=== PATIENT | female | born 1965 | race Caucasian/White ===

== ENCOUNTER 2017-12-18 14:41 | Inpatient (IN) | payer OTHER ==
[2017-12-18 16:50] VITALS: BMI 24.6
--- NOTE | 2017-12-18 20:21 | HP ---
CIWA Score - CIWA Score Nausea/Vomitin Muscle Tremors: 4-Moderate,w/Arms Extend Anxiety: 4-Mod. Anxious/Guarded Agitation: 4-Moderately Restless Paroxysmal Sweats: 3 Orientation: 1-Uncertain about Date Tacttile Disturbances: 0-None Auditory Disturbances: 0-None Visual Disturbances: 0-None Headache: 0-None Present CIWA-Ar Total Score: 19 Admission ROS BHS - HPI Chief Complaint: C/O WITHDRWAL SX'S. SEEKING DETOX FOR ALCOHOL DEPENDENCE Allergies/Adverse Reactions: Allergies Allergy/AdvReac Type Severity Reaction Status Date / Time No Known Allergies Allergy Verified 12/18/17 18:48 History of Present Illness: 52 Y.O. FEMALE WITH POLYSUBSTANCE ABUSE HERE FOR ETOH DETOX. SHE IS PRESENTLY ON OTP AT [facility]. LDM METHADONE 80 MG TODAY. THIS IS HER FIRST TIME HERE BUT IS KNOWN TO OTHER INPATIENT DETOX AND REHAB SERVICES. LAST DETOXED 6 MONTHS AGO. REPORTS LONGEST CLEAN TIME 5 YEARS. REFERRED BY HER OTP COUNSELOR. PMHX HIV DX 1998 AND HEP C NOT TX'ED. MENTAL HEALTH DEPRESSION NO MED MGMT.DENIES LEGALS. DENIES WITHDRAWAL SEIZURES, PREVIOUS/PRESENT SI/HI AND/ OR A/V HALLUCINATIONS. Exam Limitations: No Limitations - Ebola screening Have you traveled outside of the country in the last 21 days: No Have you had contact with anyone from an Ebola affected area: No Have you been sick,other than usual withdrawal symptoms: No Do you have a fever: No - Review of Systems Constitutional: Chills, Loss of Appetite, Night Sweats, Changes in sleep, Unintentional Wgt. Loss EENT: reports: Dental Problems (EDNETULOUS) Respiratory: reports: No Symptoms reported Cardiac: reports: No Symptoms Reported GI: reports: Diarrhea, Nausea, Poor Appetite, Poor Fluid Intake : reports: No Symptoms Reported Musculoskeletal: reports: No Symptoms Reported Integumentary: reports: No Symptoms Reported Neuro: reports: No Symptoms reported Endocrine: reports: No Symptoms Reported Hematology: reports: No Symptoms Reported Psychiatric: reports: Depressed Other Systems: Reviewed and Negative Patient History - Patient Medical History Hx Asthma: No Hx Chronic Obstructive Pulmonary Disease (COPD): No Hx Cancer: No Hx Cardiac Disorders: No Hx Congestive Heart Failure: No Hx Hypertension: No Hx Hypercholesterolemia: No Hx Pacemaker: No HX Cerebrovascular Accident: No Hx Seizures: No Hx Diabetes: No Hx Gastrointestinal Disorders: No Hx Liver Disease: No Hx Genitourinary Disorders: No Hx Sexually Transmitted Disorders: No Hx Renal Disease (ESRD): No Hx Thyroid Disease: No Hx Human Immunodeficiency Virus (HIV): Yes (DX 1998/ TIVICAY/DESCOVY/BACTRIM) Hx Hepatitis C: Yes (NO TXMENT ) Hx Depression: Yes Hx Suicide Attempt: No Hx Bipolar Disorder: No Hx Schizophrenia: No Other Medical History: DENIES - Patient Surgical History Past Surgical History: Yes Hx Cholecystectomy: Yes (2004) - PPD History Previous Implant?: Yes Documented Results: Negative w/o proof Implanted On Prior [facility] Admission?: No PPD to be Administered?: Yes - Reproductive History Patient is a Female of Child Bearing Age (11 -55 yrs old): Yes LMP comment: MENAPAUSE Patient : No ([facility]) - Smoking Cessation Smoking history: Current every day smoker Have you smoked in the past 12 months: Yes Aproximately how many cigarettes per day: 20 Cigars Per Day: 0 Hx Chewing Tobacco Use: No Initiated information on smoking cessation: Yes 'Breaking Loose' booklet given: 12/18/17 - Substance & Tx. History Hx Alcohol Use: Yes Hx Substance Use: Yes Substance Use Type: Alcohol, Cocaine, Heroin, Marijuana, Prescribed (METHADONE 80 MG) Hx Substance Use Treatment: Yes ([facility]) - Substances Abused Alcohol Route: Oral Frequency: Daily Amount used: 1 PINT BACARDI, 6 PACKS BEER Age of first use: 18 Date of Last Use: 12/18/17 Cocaine Route: Smoking Frequency: Daily Amount used: 6 BAGS Age of first use: 18 Date of Last Use: 12/17/17 Heroin Route: Smoking Frequency: Daily Amount used: 4 BAGS Age of first use: 18 Date of Last Use: 12/18/17 Family Disease History - Family Disease History Family Disease History: Other: Father (ALCOHOLIC), Sister (BIPOLAR, HEROIN ADDICITION ) Admission Physical Exam BHS - Vital Signs Vital Signs: Vital Signs - 24 hr 12/18/17 16:46 Temperature 97 F L Pulse Rate 79 Respiratory 18 Rate Blood Pressure 123/78 - Physical General Appearance: Yes: Appropriately Dressed, Disheveled, Tremorous, Anxious HEENTM: Yes: EOMI, Normocephalic, Normal Voice, ROSA, Pharynx Normal, Other ( EDENTULOUS) Respiratory: Yes: Chest Non-Tender, Lungs Clear, Normal Breath Sounds, No Respiratory Distress, No Accessory Muscle Use Neck: Yes: No masses,lesions,Nodules, Supple, Trachea in good position Breast: Yes: Breast Exam Deferred Cardiology: Yes: Regular Rhythm, Regular Rate, S1, S2 Abdominal: Yes: Normal Bowel Sounds, Non Tender, Flat, Soft Genitourinary: Yes: Within Normal Limits (NO C/O) Back: Yes: Normal Inspection Musculoskeletal: Yes: full range of Motion, Gait Steady Extremities: Yes: Normal Capillary Refill, Normal Range of Motion, Non-Tender, Tremors Neurological: Yes: Fully Oriented, Alert, Motor Strength 5/5 Integumentary: Yes: Dry, Warm, Track Perez (UPPER EXTREMITIES AND BLE), Other ( NEEDLE PEREZ) Lymphatic: Yes: Within Normal Limits - Diagnostic (1) Alcohol dependence with uncomplicated withdrawal Current Visit: Yes Status: Chronic (2) Cocaine dependence, uncomplicated Current Visit: Yes Status: Chronic (3) Cannabis dependence, uncomplicated Current Visit: Yes Status: Chronic (4) Methadone maintenance therapy patient Current Visit: Yes Status: Chronic (5) HIV (human immunodeficiency virus infection) Current Visit: Yes Status: Chronic (6) Hep C w/o coma, chronic Current Visit: Yes Status: Chronic (7) Depressed mood Current Visit: Yes Status: Suspected (8) Skin turgor poor Current Visit: Yes Status: Acute Cleared for Admission [facility] - Detox or Rehab [facility] Level of Care: Medically Managed Detox Regimen/Protocol: Librium [facility] Breath Alcohol Content Breath Alcohol Content: 0 Urine Pregancy Test - Result Urine Test Results: Negative- NO Line Present Urine Drug Screen - Results Drug Screen Negative: No Urine Drug Screen Results: THC-Marijuana, GOMEZ-Cocaine, OPI-Opiates, MTD- Methadone
[2017-12-18] MEDS ORDERED: chlordiazePOXIDE HCL 25 MG CAPSULE PO PRN (20:29)
[2017-12-18] MEDS ORDERED: P-EPHED 60MG/TRIPROLIDI 2.5MG TABLET PO PRN (20:29)
[2017-12-18] MEDS ORDERED: guaiFENesin/D-METHORPHAN HB 10 ML UNIT-DOSE CUPS PO PRN (20:29)
[2017-12-18] MEDS ORDERED: MAGNESIUM HYDROX 2400MG/30ML ORAL SUSPENSION 30 ML CUP PO PRN (20:29)
[2017-12-18] MEDS ORDERED: MAGNESIUM CITRATE 300 ML BOTTLE PO PRN (20:29)
[2017-12-18] MEDS ORDERED: ACETAMINOPHEN 325 MG TABLET (FP) PO PRN (20:29)
[2017-12-18] MEDS ORDERED: LOPERAMIDE HCL 2 MG CAPSULE PO PRN (20:29)
[2017-12-18] MEDS ORDERED: chlordiazePOXIDE HCL 25 MG CAPSULE PO ONE (20:29)
[2017-12-18] MEDS ORDERED: MAG HYDROX/AL HYDROX/SIMETH 30 ML UNIT-DOSE CUP PO PRN (20:29)
[2017-12-18] MEDS ORDERED: NICOTINE POLACRILEX 2 MG GUM BC PRN (20:29)
[2017-12-18] MEDS ORDERED: IBUPROFEN 400 MG TABLET (FP) PO PRN (20:29)
[2017-12-18] MEDS ORDERED: MENTHOL/PHENOL 1 EACH UD MM PRN (20:29)
[2017-12-18] MEDS: THIAMINE HCL 100 MG TABLET (FP) PO SCH (22:40)
[2017-12-18] MEDS: chlordiazePOXIDE HCL 25 MG CAPSULE PO SCH (22:40)
[2017-12-18 23:36] LABS: URINE APPEARANCE TURBID; URINE BLOOD NEGATIVE (NEGATIVE); URINE COLOR YELLOW; URINE GLUCOSE (UA) NEGATIVE (NEGATIVE); URINE KETONE NEGATIVE (NEGATIVE); URINE LEUK ESTERASE NEGATIVE (NEGATIVE); URINE NITRITE NEGATIVE (NEGATIVE); URINE UROBILINOGEN 4.0 E.U/dl mg/dL (0.2-1.0)
[2017-12-18 23:38] LABS: URINE PROTEIN 1+ (NEGATIVE)
[2017-12-18 23:39] LABS: EPI CELLS RARE /HPF (FEW); URINE BACTERIA RARE /hpf (NONE SEEN); URINE MUCUS RARE
[2017-12-19] MEDS: chlordiazePOXIDE HCL 25 MG CAPSULE PO SCH ×4 (06:07→22:45)
--- NOTE | 2017-12-19 07:55 | CONSULT ---
[facility] Psychiatric Consult - Data Date of interview: 12/18/17 Admission source: [facility] Identifying data: This is 52 years old female , single mother of three, living alone, unemploye, on [employer] support, with no psychiatric hospitalization history , here seeking for detoxificiation , reports abusing: Alcohol, heroin, Cocaine and Nicotine. Reports withdrawal symptoms. Substance Abuse History: Smoking history: Current every day smoker. Have you smoked in the past 12 months: Yes. Aproximately how many cigarettes per day: 20. Cigars Per Day: 0. Hx Chewing Tobacco Use: No. Initiated information on smoking cessation: Yes. 'Breaking Loose' booklet given: 12/18/17. - Substance & Tx. History. Hx Alcohol Use: Yes. Hx Substance Use: Yes. Substance Use Type : Alcohol, Cocaine, Heroin, Marijuana, Prescribed (METHADONE 80 MG). Hx Substance Use Treatment: Yes ([facility]). - Substances Abused. Alcohol. Route: Oral. Frequency: Daily. Amount used: 1 PINT BACARDI, 6 PACKS BEER. Age of first use: 18. Date of Last Use: 12/18/17. Cocaine. Route: Smoking. Frequency: Daily. Amount used: 6 BAGS. Age of first use: 18. Date of Last Use : 12/17/17. Heroin. Route: Smoking. Frequency: Daily. Amount used: 4 BAGS. Age of first use: 18. Date of Last Use: 12/18/17 Medical History: Denies any significant medical problems. As per chart: HIV, HepC+ Psychiatric History: Patient reports history of depression, demies suicidal, joseph ,icidal history, reports no medications taking prior to amdission. Physical/Sexual Abuse/Trauma History: Denies Additional Comment: Observation. Detox Unit Care P[rotocol Mental Status Exam - Mental Status Exam Alert and Oriented to: Person Cognitive Function: Fair Patient Appearance: Unkempt Mood: Sad Patient Behavior: Sedated Speech Pattern: Delayed Voice Loudness: Mildly Soft/Quiet Thought Process: Circumstantial Thought Disorder: Being Controlled Hallucinations: Denies Suicidal Ideation: Denies Homicidal Ideation: Denies Insight/Judgement: Fair Sleep: Difficulty falling asleep Appetite: Fair Muscle strength/Tone: Mild Hypertonicity Gait/Station: Shuffling Additional Comments: Observation. Detox Unit Care P[rotocol Psychiatric Findings - Problem List ([place] 1, 2,3) (1) Drug-induced mood disorder Current Visit: Yes Status: Acute (2) Alcohol dependence with uncomplicated withdrawal Current Visit: Yes Status: Chronic (3) Cannabis dependence, uncomplicated Current Visit: Yes Status: Chronic (4) Cocaine dependence, uncomplicated Current Visit: Yes Status: Chronic - Initial Treatment Plan Initial Treatment Plan: Observation. Detox Unit Care P[rotocol
[2017-12-19] MEDS ORDERED: METHADONE HCL 40 MG DISPERSABLE TABLET PO ONE (09:13)
[2017-12-19 10:27] LABS: HEMATOCRIT 32.6 % (32.4-45.2); HEMOGLOBIN 11.2 GM/dL (10.7-15.3); MCH 33.2 pg (25.7-33.7); MCHC 34.3 g/dl (32.0-36.0); MEAN CELL VOLUME 96.8 fl (80-96); MEAN PLT VOLUME 8.9 fl (7.5-11.1); PLATELET COUNT 107 K/MM3 (134-434); RBC 3.37 M/mm3 (3.60-5.2); RDW 15.9 % (11.6-15.6)
[2017-12-19 10:30] LABS: WHITE BLOOD COUNT 1.8 K/mm3 (4.0-10.0)
[2017-12-19 10:38] LABS: CHLORIDE 109 mmol/L (98-107); SODIUM 141 mmol/L (136-145)
[2017-12-19 10:49] LABS: ALBUMIN 2.7 g/dl (3.4-5.0); ALK PHOS 90 U/L (45-117); ANION GAP 4 (8-16); BILIRUBIN,TOTAL 0.3 mg/dL (0.2-1.0); BLOOD UREA NITROGEN 16 mg/dL (7-18); CALCIUM 7.8 mg/dL (8.5-10.1); CO2 28 mmol/L (21-32); CREATININE 0.8 mg/dL (0.55-1.02); GLUCOSE,RANDOM 99 mg/dL (74-106); SGOT/AST 211 U/L (15-37); SGPT/ALT 209 U/L (12-78); TOT PROT 6.5 g/dl (6.4-8.2)
--- NOTE | 2017-12-19 11:09 | PN ---
S CIWA - CIWA Score Nausea/Vomitin-Mild Nausea/No Vomiting Muscle Tremors: 4-Moderate,w/Arms Extend Anxiety: 4-Mod. Anxious/Guarded Agitation: 4-Moderately Restless Paroxysmal Sweats: 1-Minimal Palms Moist Orientation: 0-Oriented Tacttile Disturbances: 1-Very Mild Itch/Numbness Auditory Disturbances: 0-None Visual Disturbances: 0-None Headache: 0-None Present CIWA-Ar Total Score: 15 BHS Progress Note (SOAP) Subjective: sweat tremor anxiety restlessness trouble sleep at night Objective: 12/19/17 11:07 Vital Signs Temperature 98.1 F 12/19/17 10:26 Pulse Rate 63 12/19/17 10:26 Respiratory Rate 20 12/19/17 10:26 Blood Pressure 138/76 12/19/17 10:26 O2 Sat by Pulse Oximetry (%) Laboratory Last Values WBC 1.8 K/mm3 (4.0-10.0) L* 12/19/17 07:00 RBC 3.37 M/mm3 (3.60-5.2) L 12/19/17 07:00 Hgb 11.2 GM/dL (10.7-15.3) 12/19/17 07:00 Hct 32.6 % (32.4-45.2) 12/19/17 07:00 MCV 96.8 fl (80-96) H 12/19/17 07:00 MCH 33.2 pg (25.7-33.7) 12/19/17 07:00 MCHC 34.3 g/dl (32.0-36.0) 12/19/17 07:00 RDW 15.9 % (11.6-15.6) H 12/19/17 07:00 Plt Count 107 K/MM3 (134-434) L 12/19/17 07:00 MPV 8.9 fl (7.5-11.1) 12/19/17 07:00 Sodium 141 mmol/L (136-145) 12/19/17 07:00 Potassium 4.0 mmol/L (3.5-5.1) 12/19/17 07:00 Chloride 109 mmol/L (98-107) H 12/19/17 07:00 Carbon Dioxide 28 mmol/L (21-32) 12/19/17 07:00 Anion Gap 4 (8-16) L 12/19/17 07:00 BUN 16 mg/dL (7-18) 12/19/17 07:00 Creatinine 0.8 mg/dL (0.55-1.02) 12/19/17 07:00 Creat Clearance w eGFR > 60 (>60) 12/19/17 07:00 Random Glucose 99 mg/dL (74-106) 12/19/17 07:00 Calcium 7.8 mg/dL (8.5-10.1) L 12/19/17 07:00 Total Bilirubin 0.3 mg/dL (0.2-1.0) 12/19/17 07:00 AST 211 U/L (15-37) H 12/19/17 07:00 ALT 209 U/L (12-78) H 12/19/17 07:00 Alkaline Phosphatase 90 U/L (45-117) 12/19/17 07:00 Total Protein 6.5 g/dl (6.4-8.2) 12/19/17 07:00 Albumin 2.7 g/dl (3.4-5.0) L 12/19/17 07:00 Urine Color Yellow 12/18/17 23:20 Urine Appearance Turbid 12/18/17 23:20 Urine pH 5.0 (5.0-8.0) 12/18/17 23:20 Ur Specific [place] 1.031 (1.001-1.035) 12/18/17 23:20 Urine Protein 1+ (NEGATIVE) H 12/18/17 23:20 Urine Glucose (UA) Negative (NEGATIVE) 12/18/17 23:20 Urine Ketones Negative (NEGATIVE) 12/18/17 23:20 Urine Blood Negative (NEGATIVE) 12/18/17 23:20 Urine Nitrite Negative (NEGATIVE) 12/18/17 23:20 Urine Bilirubin 2.0 (<2.0 mg/dL) 12/18/17 23:20 Urine Urobilinogen 4.0 e.u/dl mg/dL (0.2-1.0) H 12/18/17 23:20 Ur Leukocyte Esterase Negative (NEGATIVE) 12/18/17 23:20 Urine WBC (Auto) 15 /hpf (3-5) 12/18/17 23:20 Urine RBC (Auto) 3 /hpf (0-3) 12/18/17 23:20 Ur Epithelial Cells Rare /HPF (FEW) 12/18/17 23:20 Urine Bacteria Rare /hpf (NONE SEEN) 12/18/17 23:20 Urine Mucus Rare 12/18/17 23:20 lab noted repeat cbc camp Assessment: 12/19/17 11:08 withdrawal sx rule out leukocytopenia Plan: continue detox repeat cbc camp
[2017-12-19] MEDS: PATIENT'S OWN MEDICATION (NON-FORMULARY) (Emtricitabine/Tenofov Alafenam [Descovy 200-25 M PO SCH (11:12)
[2017-12-19] MEDS: PRENATAL VITAMINS W/ FOLIC ACID TABLET (FP) PO SCH (11:12)
[2017-12-19] MEDS: PATIENT'S OWN MEDICATION (NON-FORMULARY) (Dolutegravir Sodium 50 MG) PO SCH (11:14)
[2017-12-19] MEDS: NICOTINE 21 MG/24 HOURS TOPICAL PATCH TD SCH (11:15)
--- NOTE | 2017-12-19 12:06 | PN ---
[facility] Progress Note Note: wbc 1.8 patient refuses repeat blood work discuss the necessary of follow up with repeat blood work and infection disease specialist patient agrees to consider
--- NOTE | 2017-12-19 13:00 | EKG ---
Test Reason : Blood Pressure : / mmHG Vent. Rate : 057 BPM Atrial Rate : 057 BPM P-R Int : 118 ms QRS Dur : 084 ms QT Int : 442 ms P-R-T Axes : 053 074 060 degrees QTc Int : 430 ms SINUS BRADYCARDIA WITH OCCASIONAL PREMATURE VENTRICULAR COMPLEXES OTHERWISE NORMAL ECG NO PREVIOUS ECGS AVAILABLE Confirmed by ELOISA FONSECA MD ([id number]) on 12/19/2017 1:00:02 PM Referred By: Confirmed By:ELOISA FONSECA MD
[2017-12-19] MEDS: THIAMINE HCL 100 MG TABLET (FP) PO SCH (22:46)
[2017-12-20] MEDS: chlordiazePOXIDE HCL 25 MG CAPSULE PO SCH ×3 (05:51→18:15)
[2017-12-20 10:25] LABS: HEMATOCRIT 33.6 % (32.4-45.2); HEMOGLOBIN 11.5 GM/dL (10.7-15.3); MCH 33.2 pg (25.7-33.7); MCHC 34.1 g/dl (32.0-36.0); MEAN CELL VOLUME 97.6 fl (80-96); MEAN PLT VOLUME 8.7 fl (7.5-11.1); PLATELET COUNT 120 K/MM3 (134-434); RBC 3.45 M/mm3 (3.60-5.2); RDW 15.8 % (11.6-15.6); WHITE BLOOD COUNT 2.1 K/mm3 (4.0-10.0)
--- NOTE | 2017-12-20 10:27 | PN ---
S CIWA - CIWA Score Nausea/Vomitin Muscle Tremors: 2 Anxiety: 3 Agitation: 1-Slight > Activity Paroxysmal Sweats: 1-Minimal Palms Moist Orientation: 0-Oriented Tacttile Disturbances: 0-None Auditory Disturbances: 0-None Visual Disturbances: 0-None Headache: 0-None Present CIWA-Ar Total Score: 10 S Progress Note (SOAP) Subjective: nausea, sweats, interrupted sleep, anxiety, tremors Objective: 12/20/17 10:26 Vital Signs - 24 hr 12/19/17 12/19/17 12/19/17 14:00 18:26 22:39 Temperature 97.1 F L 97.7 F 98.1 F Pulse Rate 66 50 L 60 Respiratory 16 18 18 Rate Blood Pressure 119/67 112/73 113/67 12/20/17 12/20/17 12/20/17 00:30 03:30 06:00 Temperature 98.4 F Pulse Rate 76 Respiratory 18 18 18 Rate Blood Pressure 114/65 Laboratory Tests 12/18/17 12/19/17 12/19/17 23:20 07:00 07:00 WBC 1.8 L* RBC 3.37 L Hgb 11.2 Hct 32.6 MCV 96.8 H MCH 33.2 MCHC 34.3 RDW 15.9 H Plt Count 107 L MPV 8.9 Sodium 141 Potassium 4.0 Chloride 109 H Carbon Dioxide 28 Anion Gap 4 L BUN 16 Creatinine 0.8 Creat Clearance w eGFR > 60 Random Glucose 99 Calcium 7.8 L Total Bilirubin 0.3 AST 211 H ALT 209 H Alkaline Phosphatase 90 Total Protein 6.5 Albumin 2.7 L Urine Color Yellow Urine Appearance Turbid Urine pH 5.0 Ur Specific [place] 1.031 Urine Protein 1+ H Urine Glucose (UA) Negative Urine Ketones Negative Urine Blood Negative Urine Nitrite Negative Urine Bilirubin 2.0 Urine Urobilinogen 4.0 e.u/dl H Ur Leukocyte Esterase Negative Urine WBC (Auto) 15 Urine RBC (Auto) 3 Ur Epithelial Cells Rare Urine Bacteria Rare Urine Mucus Rare RPR Titer 12/19/17 07:00 WBC RBC Hgb Hct MCV MCH MCHC RDW Plt Count MPV Sodium Potassium Chloride Carbon Dioxide Anion Gap BUN Creatinine Creat Clearance w eGFR Random Glucose Calcium Total Bilirubin AST ALT Alkaline Phosphatase Total Protein Albumin Urine Color Urine Appearance Urine pH Ur Specific [place] Urine Protein Urine Glucose (UA) Urine Ketones Urine Blood Urine Nitrite Urine Bilirubin Urine Urobilinogen Ur Leukocyte Esterase Urine WBC (Auto) Urine RBC (Auto) Ur Epithelial Cells Urine Bacteria Urine Mucus RPR Titer Nonreactive Assessment: 12/20/17 10:26 withdrawal sx - cont detox, fluids, encourage ambulation
[2017-12-20] MEDS: PRENATAL VITAMINS W/ FOLIC ACID TABLET (FP) PO SCH (10:31)
[2017-12-20] MEDS: METHADONE HCL 40 MG DISPERSABLE TABLET PO SCH (10:31)
[2017-12-20] MEDS: NICOTINE 21 MG/24 HOURS TOPICAL PATCH TD SCH (10:32)
[2017-12-20] MEDS: PATIENT'S OWN MEDICATION (NON-FORMULARY) (Dolutegravir Sodium 50 MG) PO SCH (10:32)
[2017-12-20] MEDS: PATIENT'S OWN MEDICATION (NON-FORMULARY) (Emtricitabine/Tenofov Alafenam [Descovy 200-25 M PO SCH (10:32)
[2017-12-20 10:40] LABS: ALBUMIN 2.8 g/dl (3.4-5.0); ALK PHOS 85 U/L (45-117); ANION GAP 4 (8-16); BLOOD UREA NITROGEN 14 mg/dL (7-18); CALCIUM 7.9 mg/dL (8.5-10.1); CHLORIDE 111 mmol/L (98-107); CO2 28 mmol/L (21-32); GLUCOSE,RANDOM 109 mg/dL (74-106); SGOT/AST 233 U/L (15-37); SGPT/ALT 213 U/L (12-78); SODIUM 143 mmol/L (136-145)
[2017-12-20 10:42] LABS: BILIRUBIN,TOTAL 0.3 mg/dL (0.2-1.0); CREATININE 0.8 mg/dL (0.55-1.02); TOT PROT 6.8 g/dl (6.4-8.2)
[2017-12-20] MEDS: MELATONIN 5 MG TABLETS PO PRN (22:31)
[2017-12-20] MEDS: THIAMINE HCL 100 MG TABLET (FP) PO SCH (22:31)
[2017-12-20] MEDS: chlordiazePOXIDE 5 MG CAPSULE PO SCH (22:31)
[2017-12-21] MEDS: chlordiazePOXIDE 5 MG CAPSULE PO SCH ×3 (05:59→17:44)
[2017-12-21] MEDS: METHADONE HCL 40 MG DISPERSABLE TABLET PO SCH ×2 (07:36→10:49)
[2017-12-21] MEDS: PRENATAL VITAMINS W/ FOLIC ACID TABLET (FP) PO SCH (10:48)
[2017-12-21] MEDS: PATIENT'S OWN MEDICATION (NON-FORMULARY) (Emtricitabine/Tenofov Alafenam [Descovy 200-25 M PO SCH (10:49)
[2017-12-21] MEDS: PATIENT'S OWN MEDICATION (NON-FORMULARY) (Dolutegravir Sodium 50 MG) PO SCH (10:50)
[2017-12-21] MEDS: NICOTINE 21 MG/24 HOURS TOPICAL PATCH TD SCH (10:53)
--- NOTE | 2017-12-21 15:09 | PN ---
S Progress Note (SOAP) Subjective: ALERT,IRRITABLE,ANXIOUS,INTERRUPTED SLEEP Objective: 12/21/17 15:07 Vital Signs Temperature 97.7 F 12/21/17 14:55 Pulse Rate 66 12/21/17 14:55 Respiratory Rate 16 12/21/17 14:55 Blood Pressure 110/67 12/21/17 14:55 O2 Sat by Pulse Oximetry (%) Assessment: 12/21/17 15:07 WITHDRAWAL SYMPTOM Plan: CONTINUE DETOX,D/C TYLENOL FOR ELEVATION OF ALT,AST,DISCHARGE IN AM
[2017-12-21] MEDS: THIAMINE HCL 100 MG TABLET (FP) PO SCH (23:03)
[2017-12-21] MEDS: MELATONIN 5 MG TABLETS PO PRN (23:03)
[2017-12-21] MEDS: chlordiazePOXIDE HCL 10 MG CAPSULE PO SCH (23:03)
[2017-12-22] MEDS: chlordiazePOXIDE HCL 10 MG CAPSULE PO SCH ×2 (05:42→10:26)
[2017-12-22 07:24] VITALS: BP 119/60; PULSE 52; TEMP 98.1
--- NOTE | 2017-12-22 09:18 | DS ---
[facility] Detox Discharge Summary Admission Date: 12/18/17 Discharge Date: 12/22/17 - History Present History: Alcohol Dependence, Cannabis Dependence, Cocaine Dependence, MMTP - Physical Exam Results Vital Signs: Vital Signs Temperature 98.1 F 12/22/17 07:23 Pulse Rate 52 L 12/22/17 07:23 Respiratory Rate 19 12/22/17 07:23 Blood Pressure 119/60 12/22/17 07:23 O2 Sat by Pulse Oximetry (%) - Treatment Hospital Course: Detox Protocol Followed, Detoxed Safely, Responded well, Discharged Condition Good, Rehab Referral Accepted - Medication Discharge Medications: Ambulatory Orders Dolutegravir Sodium [Tivicay] 50 mg PO DAILY 12/18/17 Emtricitabine/Tenofov Alafenam [Descovy 200-25 mg Tablet (Nf)] 1 each PO DAILY 12/18/17 Sulfamethoxazole/Trimethoprim [Bactrim Ds -] 1 tab PO DAILY 12/18/17 Methadone [Dolophine -] 80 mg PO DAILY 12/19/17 - Diagnosis (1) Drug-induced mood disorder Current Visit: Yes Status: Acute (2) Skin turgor poor Current Visit: Yes Status: Acute (3) Alcohol dependence with uncomplicated withdrawal Current Visit: Yes Status: Chronic (4) Cannabis dependence, uncomplicated Current Visit: Yes Status: Chronic (5) Cocaine dependence, uncomplicated Current Visit: Yes Status: Chronic (6) HIV (human immunodeficiency virus infection) Current Visit: Yes Status: Chronic (7) Hep C w/o coma, chronic Current Visit: Yes Status: Chronic (8) Methadone maintenance therapy patient Current Visit: Yes Status: Chronic (9) Depressed mood Current Visit: Yes Status: Suspected - AMA Did Patient Leave Against Medical Advice: No
[2017-12-22] MEDS: PRENATAL VITAMINS W/ FOLIC ACID TABLET (FP) PO SCH (10:22)
[2017-12-22] MEDS: NICOTINE 21 MG/24 HOURS TOPICAL PATCH TD SCH (10:25)
[2017-12-22] MEDS: METHADONE HCL 40 MG DISPERSABLE TABLET PO SCH (10:26)
[2017-12-22] MEDS: PATIENT'S OWN MEDICATION (NON-FORMULARY) (Dolutegravir Sodium 50 MG) PO SCH (10:27)
[2017-12-22] MEDS: PATIENT'S OWN MEDICATION (NON-FORMULARY) (Emtricitabine/Tenofov Alafenam [Descovy 200-25 M PO SCH (10:27)
== END 2017-12-22 10:40 | disposition other institution (70) | DRG 773 ==
LOC: YASAS 14:41 → Y6N 19:08
PROVIDERS: ADMIT Internal Medicine; ATTEND Internal Medicine
PROC: HZ2ZZZZ Detoxification Services for Substance Abuse Treatment (ICD-10-PCS; principal; 2017-12-18)
DX: F10.230 Alcohol dependence with withdrawal, uncomplicated (principal); F11.20 Opioid dependence, uncomplicated; F14.20 Cocaine dependence, uncomplicated; F12.20 Cannabis dependence, uncomplicated; F17.210 Nicotine dependence, cigarettes, uncomplicated; F19.24 Other psychoactive substance dependence with psychoactive substance-induced mood disorder; F32.9 Major depressive disorder, single episode, unspecified; Z21 Asymptomatic human immunodeficiency virus [HIV] infection status; B18.2 Chronic viral hepatitis C; R23.4 Changes in skin texture
CPT/HCPCS: 36415; 80053; 81003; 81015; 85027; 86593; 93005; 93010

== ENCOUNTER 2017-12-22 10:45 | Inpatient (IN) | payer OTHER ==
--- NOTE | 2017-12-22 12:53 | HP ---
[facility] Rehab Assess/Revision - Admission History Admitted to Rehab from: [facility] Date of Admission to Rehab: 12/22/17 - Vital signs Vital Signs: Vital Signs Period Temp Pulse Resp BP Sys/Maharaj Pulse Ox Last 24 Hr 97.4 F 66 18 105/66 - Findings Detox History & Physical reviewed: Yes Concur with findings: Yes Comments/Additional Findings: for rehab as protocol Inpatient Rehab Admission - Initial Determination Are CD services needed?: Yes Free of communicable disease: Yes Not in need of hospitalization: Yes - Rehab Admission Criteria Previous failed treatment: No Poor recovery environment: Yes Comorbidities: Yes Lacks judgement: No Patient is meeting Inpatient Rehab admission criteria:: Yes
[2017-12-22] MEDS ORDERED: P-EPHED 60MG/TRIPROLIDI 2.5MG TABLET PO PRN (12:54)
[2017-12-22] MEDS ORDERED: hydrOXYzine PAMOATE 25 MG CAPSULE (FP) PO PRN (12:54)
[2017-12-22] MEDS ORDERED: MENTHOL/PHENOL 1 EACH UD MM PRN (12:54)
[2017-12-22] MEDS ORDERED: MAGNESIUM HYDROX 2400MG/30ML ORAL SUSPENSION 30 ML CUP PO PRN (12:54)
[2017-12-22] MEDS ORDERED: IBUPROFEN 400 MG TABLET (FP) PO PRN (12:54)
[2017-12-22] MEDS ORDERED: LOPERAMIDE HCL 2 MG CAPSULE PO PRN (12:54)
[2017-12-22] MEDS ORDERED: MAGNESIUM CITRATE 300 ML BOTTLE PO PRN (12:54)
[2017-12-22] MEDS ORDERED: ACETAMINOPHEN 325 MG TABLET (FP) PO PRN (12:54)
[2017-12-22] MEDS ORDERED: guaiFENesin/D-METHORPHAN HB 10 ML UNIT-DOSE CUPS PO PRN (12:54)
--- NOTE | 2017-12-22 15:12 | PN ---
[facility] Progress Note Note: Psychiatric nurse practitioner note: Call received by RN stating patient reports taking trazodone in the evening but is unsure of dose. Chart reviewed. Pt did not receive psychotrophic medications while in detox. Will order trazodone 50mg qhs. Pt. to be evaluated tomorrow by unit psychiatrist. Will continue to monitor.
[2017-12-22] MEDS: THIAMINE HCL 100 MG TABLET (FP) PO SCH (21:29)
[2017-12-22] MEDS: traZODone HCL 50 MG TABLET (FP) PO SCH (21:29)
[2017-12-22] MEDS ORDERED: MELATONIN 5 MG TABLETS PO PRN (22:00)
[2017-12-23] MEDS: SULFAMETHOXAZOLE/TRIMETHOPRIM 800MG/160MG D.S. TABLET PO SCH (09:56)
[2017-12-23] MEDS: METHADONE HCL 40 MG DISPERSABLE TABLET PO SCH (09:56)
[2017-12-23] MEDS: PRENATAL VITAMINS W/ FOLIC ACID TABLET (FP) PO SCH (09:56)
--- NOTE | 2017-12-23 11:53 | HP ---
Psychiatrist Admission - Data Date of interview: 12/23/17 Admission source: [address] [place] [address] detox Identifying data: This is the first admission to [facility] inpatient rehabilitation for this 52 yo H female single mother of ,unemployed,supported by [employer]. Medical History: HIV+,Hep C. Psychiatric History: Reports some sleeping difficulties on and off.patient was placed on Trazodone 50 mg po hs while in detox on [address] [place] [address] with good response. Physical/Sexual Abuse/Trauma History: denies Vital Signs: Vital Signs - 24 hr 12/23/17 12/23/17 12/23/17 01:14 04:57 07:29 Temperature 97.7 F Pulse Rate 57 L Respiratory 18 18 Rate Blood Pressure 119/79 Allergies/Adverse Reactions: Allergies Allergy/AdvReac Type Severity Reaction Status Date / Time No Known Allergies Allergy Verified 12/18/17 18:48 Date of last physical exam: 12/23/17 Concur with the findings of this exam: Yes - Substance Abuse/Tx History Hx Alcohol Use: Yes (drinking since 16 yo,vodka,gin 1-2 pints up to gallon) Hx Substance Use: Yes (marijuana since school age,cocaine and ,heroin since 18 yo IV,MMTP 80 mg ) Substance Use Type: Alcohol, Cocaine, Heroin, Marijuana Hx Substance Use Treatment: Yes (completed [facility] 6 yo,longest abstinence is 5 years) Mental Status Exam - Mental Status Exam Alert and Oriented to: Time, Place, Person Cognitive Function: Grossly Intact Patient Appearance: Unkempt Mood: Euthymic Affect: Mood Congruent Patient Behavior: Cooperative Speech Pattern: Clear Voice Loudness: Normal Thought Process: Goal Oriented Thought Disorder: Not Present Hallucinations: Denies Suicidal Ideation: Denies Homicidal Ideation: Denies Insight/Judgement: Fair Sleep: Fair Appetite: Fair Muscle strength/Tone: Normal Gait/Station: Normal Psychiatric Findings - Problem List ([place] 1, 2,3) (1) Drug-induced mood disorder Current Visit: Yes Status: Chronic (2) HIV (human immunodeficiency virus infection) Current Visit: Yes Status: Chronic (3) Hep C w/o coma, chronic Current Visit: Yes Status: Chronic (4) Methadone maintenance therapy patient Current Visit: Yes Status: Chronic (5) Alcohol dependence Current Visit: Yes Status: Chronic (6) Cannabis dependence Current Visit: Yes Status: Chronic (7) Cocaine dependence Current Visit: Yes Status: Chronic (8) Substance-induced sleep disorder Current Visit: Yes Status: Chronic - Initial Treatment Plan Initial Treatment Plan: Trazodone 50 mg po hs.Will monitor progress.
[2017-12-23] MEDS: traZODone HCL 50 MG TABLET (FP) PO SCH (21:13)
[2017-12-23] MEDS: THIAMINE HCL 100 MG TABLET (FP) PO SCH (21:13)
[2017-12-24] MEDS: METHADONE HCL 40 MG DISPERSABLE TABLET PO SCH ×2 (06:32→10:13)
[2017-12-24] MEDS: PRENATAL VITAMINS W/ FOLIC ACID TABLET (FP) PO SCH (10:12)
[2017-12-24] MEDS: SULFAMETHOXAZOLE/TRIMETHOPRIM 800MG/160MG D.S. TABLET PO SCH (10:12)
[2017-12-24] MEDS: DOLUTEGRAVIR SODIUM 50 MG TABLET PO SCH (15:06)
[2017-12-24] MEDS: EMTRICITABINE/TENOFOV ALAFENAM (DESCOVY) TABLET PO SCH (15:06)
[2017-12-24] MEDS ORDERED: PT OWN MED DRAWER 7, Y5N ONE (15:15)
[2017-12-24] MEDS: MAG HYDROX/AL HYDROX/SIMETH 30 ML UNIT-DOSE CUP PO PRN (19:05)
[2017-12-24] MEDS: traZODone HCL 50 MG TABLET (FP) PO SCH (21:16)
[2017-12-24] MEDS: THIAMINE HCL 100 MG TABLET (FP) PO SCH (21:17)
[2017-12-25] MEDS: MAG HYDROX/AL HYDROX/SIMETH 30 ML UNIT-DOSE CUP PO PRN (05:43)
[2017-12-25] MEDS: SULFAMETHOXAZOLE/TRIMETHOPRIM 800MG/160MG D.S. TABLET PO SCH (09:52)
[2017-12-25] MEDS: METHADONE HCL 40 MG DISPERSABLE TABLET PO SCH (09:52)
[2017-12-25] MEDS: EMTRICITABINE/TENOFOV ALAFENAM (DESCOVY) TABLET PO SCH (09:53)
[2017-12-25] MEDS: PRENATAL VITAMINS W/ FOLIC ACID TABLET (FP) PO SCH (09:53)
[2017-12-25] MEDS: DOLUTEGRAVIR SODIUM 50 MG TABLET PO SCH (09:53)
[2017-12-25] MEDS ORDERED: PT OWN MED DRAWER 7, Y5N ONE ×3 (10:10→22:53)
[2017-12-25] MEDS ORDERED: SIMETHICONE 80 MG TAB.CHEW (FP) PO PRN (12:04)
--- NOTE | 2017-12-25 12:09 | PN ---
[facility] Progress Note Note: Patient c/o bloating and abdominal "gas". Denies N/V/D. Pt reports Mylanta ineffective. PE: skin warm and dry, GI soft, BS+, NT. A/P indigestion: will add simethicone 80mg PRN and continue to monitor clinically.
[2017-12-25] MEDS: THIAMINE HCL 100 MG TABLET (FP) PO SCH (21:21)
[2017-12-25] MEDS: traZODone HCL 50 MG TABLET (FP) PO SCH (21:21)
[2017-12-26] MEDS: METHADONE HCL 40 MG DISPERSABLE TABLET PO SCH (10:10)
[2017-12-26] MEDS: PRENATAL VITAMINS W/ FOLIC ACID TABLET (FP) PO SCH (10:10)
[2017-12-26] MEDS: SULFAMETHOXAZOLE/TRIMETHOPRIM 800MG/160MG D.S. TABLET PO SCH (10:11)
[2017-12-26] MEDS: DOLUTEGRAVIR SODIUM 50 MG TABLET PO SCH (10:11)
[2017-12-26] MEDS: EMTRICITABINE/TENOFOV ALAFENAM (DESCOVY) TABLET PO SCH (10:11)
[2017-12-26] MEDS: THIAMINE HCL 100 MG TABLET (FP) PO SCH (21:22)
[2017-12-26] MEDS: traZODone HCL 50 MG TABLET (FP) PO SCH (21:22)
[2017-12-27] MEDS: MAG HYDROX/AL HYDROX/SIMETH 30 ML UNIT-DOSE CUP PO PRN (06:31)
[2017-12-27] MEDS ORDERED: PT OWN MED DRAWER 7, Y5N ONE ×4 (09:07→22:42)
[2017-12-27] MEDS: PRENATAL VITAMINS W/ FOLIC ACID TABLET (FP) PO SCH (10:33)
[2017-12-27] MEDS: METHADONE HCL 40 MG DISPERSABLE TABLET PO SCH (10:33)
[2017-12-27] MEDS: EMTRICITABINE/TENOFOV ALAFENAM (DESCOVY) TABLET PO SCH (10:33)
[2017-12-27] MEDS: SULFAMETHOXAZOLE/TRIMETHOPRIM 800MG/160MG D.S. TABLET PO SCH (10:33)
[2017-12-27] MEDS: DOLUTEGRAVIR SODIUM 50 MG TABLET PO SCH (10:33)
[2017-12-27] MEDS: THIAMINE HCL 100 MG TABLET (FP) PO SCH (21:24)
[2017-12-27] MEDS: traZODone HCL 50 MG TABLET (FP) PO SCH (21:24)
[2017-12-28] MEDS: METHADONE HCL 40 MG DISPERSABLE TABLET PO SCH (10:19)
[2017-12-28] MEDS: DOLUTEGRAVIR SODIUM 50 MG TABLET PO SCH (10:20)
[2017-12-28] MEDS: PRENATAL VITAMINS W/ FOLIC ACID TABLET (FP) PO SCH (10:20)
[2017-12-28] MEDS: SULFAMETHOXAZOLE/TRIMETHOPRIM 800MG/160MG D.S. TABLET PO SCH (10:20)
[2017-12-28] MEDS: EMTRICITABINE/TENOFOV ALAFENAM (DESCOVY) TABLET PO SCH (10:21)
[2017-12-28] MEDS ORDERED: PT OWN MED DRAWER 7, Y5N ONE (15:52)
[2017-12-28] MEDS: traZODone HCL 50 MG TABLET (FP) PO SCH (21:16)
[2017-12-28] MEDS: THIAMINE HCL 100 MG TABLET (FP) PO SCH (21:16)
[2017-12-29] MEDS: METHADONE HCL 40 MG DISPERSABLE TABLET PO SCH (10:18)
[2017-12-29] MEDS: PRENATAL VITAMINS W/ FOLIC ACID TABLET (FP) PO SCH (10:19)
[2017-12-29] MEDS: SULFAMETHOXAZOLE/TRIMETHOPRIM 800MG/160MG D.S. TABLET PO SCH (10:19)
[2017-12-29] MEDS: EMTRICITABINE/TENOFOV ALAFENAM (DESCOVY) TABLET PO SCH (10:20)
[2017-12-29] MEDS: DOLUTEGRAVIR SODIUM 50 MG TABLET PO SCH (10:20)
[2017-12-29] MEDS ORDERED: PT OWN MED DRAWER 7, Y5N ONE (10:36)
[2017-12-29] MEDS: THIAMINE HCL 100 MG TABLET (FP) PO SCH (21:14)
[2017-12-29] MEDS: traZODone HCL 50 MG TABLET (FP) PO SCH (21:14)
[2017-12-30 07:17] VITALS: BP 114/73; PULSE 56; TEMP 97.5
[2017-12-30] MEDS: METHADONE HCL 40 MG DISPERSABLE TABLET PO SCH (09:08)
[2017-12-30] MEDS: EMTRICITABINE/TENOFOV ALAFENAM (DESCOVY) TABLET PO SCH (09:09)
[2017-12-30] MEDS: PRENATAL VITAMINS W/ FOLIC ACID TABLET (FP) PO SCH (09:09)
[2017-12-30] MEDS: DOLUTEGRAVIR SODIUM 50 MG TABLET PO SCH (09:09)
[2017-12-30] MEDS: SULFAMETHOXAZOLE/TRIMETHOPRIM 800MG/160MG D.S. TABLET PO SCH (09:10)
--- NOTE | 2017-12-30 16:38 | PN ---
Psychiatric Progress Note Vital Signs: Vital Signs Period Temp Pulse Resp BP Sys/Maharaj Pulse Ox Last 24 Hr 97.5 F 56 18-18 114/73 Date of Session: 12/30/17 Chief Complaint:: Discharge visit HPI: Alcohol,Opioid,Cannabis,Cocaine dependence comorbid with Substance induced mood disorder. ROS: HIV+,Hep C. Current Side Effect: No Lab tests ordered: No Lab tests reviewed: Yes Provider note:: Patient completed this program today.she has met her treatment goals and will continue to address her issues on outpatient basis.patient reports finding that current medications:Trazodone 50 mg po hs helps to cope with sleeping difficulties.Script for 30 days provided.Psychotherapy provided focusing on coping skills,support utilization to maintian recovery. Patient is stable for discharge today. Total face to face time:: 30 Mental Status Exam - Mental Status Exam Alert and Oriented to: Time, Place, Person Cognitive Function: Grossly Intact Patient Appearance: Well Groomed Mood: Euthymic Affect: Mood Congruent Patient Behavior: Cooperative Speech Pattern: Clear Voice Loudness: Normal Thought Process: Goal Oriented Thought Disorder: Not Present Hallucinations: Denies Suicidal Ideation: Denies Homicidal Ideation: Denies Insight/Judgement: Fair Sleep: Fair Appetite: Fair Muscle strength/Tone: Normal Gait/Station: Normal
== END 2017-12-30 09:17 | disposition home or self-care (01) | DRG 772 ==
LOC: YASAS 10:45 → Y3E 10:47
PROVIDERS: ADMIT Psychiatry & Neurology Psychiatry; ATTEND Psychiatry & Neurology Psychiatry
PROC: HZ42ZZZ Group Counseling for Substance Abuse Treatment, Cognitive-Behavioral (ICD-10-PCS; principal; 2017-12-22)
DX: F11.20 Opioid dependence, uncomplicated (principal); F10.20 Alcohol dependence, uncomplicated; F14.20 Cocaine dependence, uncomplicated; F12.20 Cannabis dependence, uncomplicated; F19.282 Other psychoactive substance dependence with psychoactive substance-induced sleep disorder; F19.24 Other psychoactive substance dependence with psychoactive substance-induced mood disorder; B18.2 Chronic viral hepatitis C; Z21 Asymptomatic human immunodeficiency virus [HIV] infection status; K30 Functional dyspepsia; Z59.0 Homelessness

== ENCOUNTER 2020-12-27 16:11 | Inpatient (IN) | payer OTHER ==
[2020-12-27 17:09] VITALS: BMI 21.6
[2020-12-27] MEDS ORDERED: BISMUTH SUBSALICYLATE 524 MG/30 ML UD PO PRN (20:23)
[2020-12-27] MEDS ORDERED: MAGNESIUM HYDROX 2400MG/30ML ORAL SUSPENSION 30 ML CUP PO PRN (20:23)
[2020-12-27] MEDS ORDERED: METHOCARBAMOL 500 MG TABLET PO PRN (20:23)
[2020-12-27] MEDS ORDERED: NICOTINE POLACRILEX 2 MG GUM BUC PRN (20:23)
[2020-12-27] MEDS ORDERED: ONDANSETRON *ODT* 4 MG TABLET SL PRN (20:23)
[2020-12-27] MEDS ORDERED: MAG HYDROX/AL HYDROX/SIMETH 30 ML UNIT-DOSE CUP PO PRN (20:23)
[2020-12-27] MEDS ORDERED: MAGNESIUM CITRATE 300 ML BOTTLE PO PRN (20:23)
[2020-12-27] MEDS ORDERED: LORazepam 1 MG TABLET PO PRN (20:23)
[2020-12-27] MEDS ORDERED: hydrOXYzine PAMOATE 25 MG CAPSULE (FP) PO PRN (20:23)
[2020-12-27] MEDS ORDERED: ACETAMINOPHEN 325 MG TABLET (FP) PO PRN ×2 (20:23)
[2020-12-27] MEDS ORDERED: MENTHOL/PHENOL 1 EACH UD MM PRN (20:23)
[2020-12-27] MEDS ORDERED: IBUPROFEN 400 MG TABLET (FP) PO PRN (20:23)
[2020-12-27] MEDS: THIAMINE HCL 100 MG TABLET (FP) PO SCH (23:51)
[2020-12-27] MEDS: traZODone HCL 50 MG TABLET (FP) PO SCH (23:51)
[2020-12-27] MEDS: MELATONIN 5 MG TABLETS PO SCH (23:51)
[2020-12-27] MEDS: LORazepam 2 MG TABLET PO SCH (23:51)
[2020-12-28] MEDS: LORazepam 2 MG TABLET PO SCH ×4 (07:05→22:24)
[2020-12-28] MEDS ORDERED: METHADONE HCL 10 MG TABLET PO ONE (10:00)
[2020-12-28] MEDS: SULFAMETHOXAZOLE/TRIMETHOPRIM 800MG/160MG D.S. TABLET PO SCH (10:30)
[2020-12-28] MEDS: BICTEGRAV/EMTRICIT/TENOFOV (BIKTARVY) 50-200-25 MG TABLET PO SCH (10:31)
[2020-12-28] MEDS: NICOTINE 21 MG/24 HOURS TOPICAL PATCH TD SCH (10:39)
[2020-12-28] MEDS: PRENATAL VITAMINS W/ FOLIC ACID TABLET (FP) PO SCH (10:39)
[2020-12-28 11:01] LABS: BLOOD UREA NITROGEN 21.3 mg/dL (7-18); CALCIUM 8.8 mg/dL (8.5-10.1); MCH 32.8 pg (25.7-33.7); MCHC 34.1 g/dl (32.0-36.0); MEAN CELL VOLUME 96.1 fl (80-96); MEAN PLT VOLUME 9.3 fl (7.5-11.1); PLATELET COUNT 105 K/MM3 (134-434); RBC 3.95 M/mm3 (3.60-5.2); RDW 13.7 % (11.6-15.6); WHITE BLOOD COUNT 2.5 K/mm3 (4.0-10.0)
[2020-12-28 11:02] LABS: ALBUMIN 3.4 g/dl (3.4-5.0)
[2020-12-28 11:04] LABS: CREATININE 0.9 mg/dL (0.55-1.3)
[2020-12-28 11:08] LABS: BILIRUBIN,TOTAL 0.3 mg/dL (0.2-1)
[2020-12-28 11:09] LABS: TOT PROT 8.5 g/dl (6.4-8.2)
[2020-12-28] MEDS: THIAMINE HCL 100 MG TABLET (FP) PO SCH (22:25)
[2020-12-28] MEDS: traZODone HCL 50 MG TABLET (FP) PO SCH (22:25)
[2020-12-28] MEDS: MELATONIN 5 MG TABLETS PO SCH (22:25)
[2020-12-29] MEDS: LORazepam 1 MG TABLET PO SCH ×4 (06:48→22:57)
[2020-12-29] MEDS: METHADONE HCL 10 MG TABLET PO SCH (06:48)
[2020-12-29] MEDS ORDERED: cloNIDine HCL 0.1 MG TABLET PO PRN (09:33)
[2020-12-29] MEDS ORDERED: IBUPROFEN 400 MG TABLET (FP) PO PRN (09:38)
[2020-12-29] MEDS: PRENATAL VITAMINS W/ FOLIC ACID TABLET (FP) PO SCH (10:50)
[2020-12-29] MEDS: BICTEGRAV/EMTRICIT/TENOFOV (BIKTARVY) 50-200-25 MG TABLET PO SCH (10:50)
[2020-12-29] MEDS: NICOTINE 21 MG/24 HOURS TOPICAL PATCH TD SCH (10:50)
[2020-12-29] MEDS: SULFAMETHOXAZOLE/TRIMETHOPRIM 800MG/160MG D.S. TABLET PO SCH (10:50)
[2020-12-29] MEDS: THIAMINE HCL 100 MG TABLET (FP) PO SCH (22:58)
[2020-12-29] MEDS: MELATONIN 5 MG TABLETS PO SCH (22:58)
[2020-12-29] MEDS: traZODone HCL 50 MG TABLET (FP) PO SCH (22:58)
[2020-12-30] MEDS ORDERED: LORazepam 0.5 MG TABLET PO PRN
[2020-12-30] MEDS: METHADONE HCL 10 MG TABLET PO SCH (06:07)
[2020-12-30] MEDS: LORazepam 0.5 MG TABLET PO SCH ×2 (06:08→11:29)
[2020-12-30 08:06] VITALS: PULSE 68; TEMP 98.3
[2020-12-30] MEDS: PRENATAL VITAMINS W/ FOLIC ACID TABLET (FP) PO SCH (11:29)
[2020-12-30] MEDS: NICOTINE 21 MG/24 HOURS TOPICAL PATCH TD SCH (11:30)
[2020-12-30] MEDS: SULFAMETHOXAZOLE/TRIMETHOPRIM 800MG/160MG D.S. TABLET PO SCH (11:30)
[2020-12-30] MEDS: BICTEGRAV/EMTRICIT/TENOFOV (BIKTARVY) 50-200-25 MG TABLET PO SCH (11:30)
[2020-12-30 13:05] VITALS: BP 147/89
[2020-12-31] MEDS ORDERED: LORazepam 0.5 MG TABLET PO ONE (05:00)
[2020-12-31 06:06] LABS: SARS-CoV-2 NAA Not Detected (Not Detected)
== END 2020-12-30 15:15 | disposition home or self-care (01) | DRG 773 ==
LOC: YASAS 16:11 → Y6N 19:17
PROVIDERS: ADMIT Allergy & Immunology; ATTEND Allergy & Immunology
PROC: HZ2ZZZZ Detoxification Services for Substance Abuse Treatment (ICD-10-PCS; principal; 2020-12-27)
DX: F10.230 Alcohol dependence with withdrawal, uncomplicated (principal); F11.20 Opioid dependence, uncomplicated; F14.20 Cocaine dependence, uncomplicated; F17.210 Nicotine dependence, cigarettes, uncomplicated; Z21 Asymptomatic human immunodeficiency virus [HIV] infection status; D72.819 Decreased white blood cell count, unspecified; D69.6 Thrombocytopenia, unspecified; B18.2 Chronic viral hepatitis C; R74.01 Elevation of levels of liver transaminase levels; Z99.89 Dependence on other enabling machines and devices; W06.XXXA Fall from bed, initial encounter; Y93.89 Activity, other specified; Y92.230 Patient room in hospital as the place of occurrence of the external cause; Y99.8 Other external cause status
CPT/HCPCS: 36415; 80053; 85027; 86593; 86780; C9803; U0003; U0005

== ENCOUNTER 2021-11-21 20:39 | Inpatient (IN) | payer OTHER ==
[2021-11-21] MEDS ORDERED: MAG HYDROX/AL HYDROX/SIMETH 30 ML UNIT-DOSE CUP PO PRN (23:23)
[2021-11-21] MEDS ORDERED: ACETAMINOPHEN 325 MG TABLET (FP) PO PRN ×2 (23:23)
[2021-11-21] MEDS ORDERED: hydrOXYzine PAMOATE 25 MG CAPSULE (FP) PO PRN (23:23)
[2021-11-21] MEDS ORDERED: METHOCARBAMOL 500 MG TABLET PO PRN (23:23)
[2021-11-21] MEDS ORDERED: MAGNESIUM CITRATE 300 ML BOTTLE PO PRN (23:23)
[2021-11-21] MEDS ORDERED: BISMUTH SUBSALICYLATE 524 MG/30 ML PO PRN (23:23)
[2021-11-21] MEDS ORDERED: ONDANSETRON *ODT* 4 MG TABLET SL PRN (23:23)
[2021-11-21] MEDS ORDERED: MELATONIN 5 MG TABLETS PO PRN (23:23)
[2021-11-21] MEDS ORDERED: MAGNESIUM HYDROX 2400MG/30ML ORAL SUSPENSION 30 ML CUP PO PRN (23:23)
[2021-11-21] MEDS ORDERED: IBUPROFEN 400 MG TABLET (FP) PO PRN (23:23)
[2021-11-21] MEDS ORDERED: MENTHOL/PHENOL 1 EACH UD MM PRN (23:23)
[2021-11-22] MEDS: NICOTINE 7 MG/24 HOURS TOPICAL PATCH TD SCH (10:20)
[2021-11-22] MEDS: PRENATAL VITAMINS W/ FOLIC ACID TABLET (FP) PO SCH (10:20)
[2021-11-22 10:51] LABS: HEMATOCRIT 36.4 % (32.4-45.2); HEMOGLOBIN 12.2 GM/dL (10.7-15.3); MCH 30.2 pg (25.7-33.7); MCHC 33.4 g/dl (32.0-36.0); MEAN CELL VOLUME 90.4 fl (80-96); MEAN PLT VOLUME 7.9 fl (7.5-11.1); PLATELET COUNT 181 10^3/uL (134-434); RBC 4.03 M/mm3 (3.60-5.2); RDW 14.2 % (11.6-15.6); WHITE BLOOD COUNT 4.1 K/mm3 (4.0-10.0)
[2021-11-22 11:01] LABS: ALBUMIN 2.4 g/dl (3.4-5.0); BLOOD UREA NITROGEN 7.4 mg/dL (7-18)
[2021-11-22 11:05] LABS: CREATININE 0.7 mg/dL (0.55-1.3); TOT PROT 6.8 g/dl (6.4-8.2)
[2021-11-22 11:06] LABS: BILIRUBIN,TOTAL 0.4 mg/dL (0.2-1)
[2021-11-22] MEDS ORDERED: methaDONE HCL 10 MG TABLET (FOR DETOX USE ONLY) PO ONE (12:17)
[2021-11-22] MEDS: THIAMINE HCL 100 MG TABLET (FP) PO SCH (22:52)
[2021-11-23] MEDS: cloNIDine HCL 0.1 MG TABLET PO PRN ×2 (07:22→22:09)
[2021-11-23] MEDS ORDERED: methaDONE HCL 10 MG TABLET (FOR DETOX USE ONLY) ONE (09:03)
[2021-11-23] MEDS: PRENATAL VITAMINS W/ FOLIC ACID TABLET (FP) PO SCH (10:48)
[2021-11-23] MEDS ORDERED: diazePAM 5 MG TABLET PO PRN (10:50)
[2021-11-23] MEDS: NICOTINE 7 MG/24 HOURS TOPICAL PATCH TD SCH (10:59)
[2021-11-23] MEDS: LOPERAMIDE HCL 2 MG CAPSULE PO PRN ×2 (11:33→22:08)
[2021-11-23] MEDS ORDERED: methaDONE HCL 10 MG TABLET (FOR DETOX USE ONLY) PO ONE ×2 (21:30→23:00)
[2021-11-23] MEDS: THIAMINE HCL 100 MG TABLET (FP) PO SCH (22:09)
[2021-11-24] MEDS: PRENATAL VITAMINS W/ FOLIC ACID TABLET (FP) PO SCH (09:49)
[2021-11-24] MEDS: NICOTINE 7 MG/24 HOURS TOPICAL PATCH TD SCH (10:00)
[2021-11-24] MEDS ORDERED: methaDONE HCL 10 MG TABLET (FOR DETOX USE ONLY) PO ONE (10:00)
[2021-11-24 15:23] VITALS: BP 119/77; PULSE 80; TEMP 97.3
[2021-11-24 16:08] LABS: SARS-CoV-2 NAA Not Detected (Not Detected)
[2021-11-24] MEDS: THIAMINE HCL 100 MG TABLET (FP) PO SCH (23:14)
[2021-11-26] MEDS ORDERED: methaDONE HCL 10 MG TABLET (FOR DETOX USE ONLY) PO ONE (10:00)
== END 2021-11-24 23:00 | disposition short-term general hospital (02) | DRG 773 ==
LOC: YASAS 20:39 → Y3N 23:39
PROVIDERS: ADMIT Allergy & Immunology; ATTEND Allergy & Immunology
PROC: HZ2ZZZZ Detoxification Services for Substance Abuse Treatment (ICD-10-PCS; principal; 2021-11-21)
DX: F11.23 Opioid dependence with withdrawal (principal); F14.20 Cocaine dependence, uncomplicated; F17.210 Nicotine dependence, cigarettes, uncomplicated; F41.9 Anxiety disorder, unspecified; F32.A Depression, unspecified; Z21 Asymptomatic human immunodeficiency virus [HIV] infection status; B18.2 Chronic viral hepatitis C; R19.7 Diarrhea, unspecified; L98.8 Other specified disorders of the skin and subcutaneous tissue; L84 Corns and callosities; Z86.19 Personal history of other infectious and parasitic diseases; Z59.00 Homelessness unspecified; Z89.422 Acquired absence of other left toe(s)
CPT/HCPCS: 36415; 80053; 85027; 86593; 86780; C9803-CS; J0735; U0003; U0005

== ENCOUNTER 2021-11-23 13:09 | Emergency (ER) | payer OTHER ==
[2021-11-23 13:41] VITALS: BP 138/88; PULSE 70; TEMP 98.6; BMI 29.2
[2021-11-23] MEDS ORDERED: SODIUM CHLORIDE 0.9% 500 ML INFUS.BAG IV ONE (13:56)
[2021-11-23 14:56] LABS: BASO % 0.3 % (0-2.0); HEMATOCRIT 41.7 % (32.4-45.2); HEMOGLOBIN 14.2 GM/dL (10.7-15.3); LYMPH % 14.9 % (8-40); MCH 30.2 pg (25.7-33.7); MCHC 34.1 g/dl (32.0-36.0); MEAN CELL VOLUME 88.4 fl (80-96); MONO % 8.1 % (3.8-10.2); NEUT % 76.7 % (42.8-82.8); PLATELET COUNT 247 10^3/uL (134-434); RBC 4.72 M/mm3 (3.60-5.2); WHITE BLOOD COUNT 6.8 K/mm3 (4.0-10.0)
[2021-11-23 15:08] LABS: ALBUMIN 2.8 g/dl (3.4-5.0); BLOOD UREA NITROGEN 8.4 mg/dL (7-18)
[2021-11-23 15:11] LABS: CREATININE 0.9 mg/dL (0.55-1.3)
[2021-11-23 15:13] LABS: BILIRUBIN,TOTAL 0.6 mg/dL (0.2-1); TOT PROT 8.4 g/dl (6.4-8.2)
== END 2021-11-23 20:31 | disposition home or self-care (01) ==
LOC: JER 13:09
DX: R19.7 Diarrhea, unspecified (principal)
CPT/HCPCS: 36415; 80053; 85025; 99283-25

== ENCOUNTER 2021-11-24 16:01 | Inpatient (IN) | payer OTHER ==
[2021-11-24] MEDS ORDERED: PIPERACILLIN/TAZOB 4.5 GM 4.5 GM in DEXTROSE 5%-WATER 100 ML IVPB ONE (17:07)
[2021-11-24] MEDS ORDERED: VANCOMYCIN 1 GM in D5W (PRE-DOCKED) 1,000 MG/250 ML IVPB ONE (17:07)
[2021-11-24] MEDS ORDERED: PIPERACILLIN/TAZOB 4.5 GM 4.5 GM/100 ML BAG IVPB ONE ×2 (17:55→18:02)
[2021-11-24] MEDS ORDERED: VANCOMYCIN 1 GRAM (PRE-DOCKED) 1,000 MG/250 ML BAG IVPB ONE (17:56)
[2021-11-24 19:23] LABS: BASO % 0.3 % (0-2.0); EOS % 0.1 % (0-4.5); HEMATOCRIT 39.6 % (32.4-45.2); HEMOGLOBIN 13.6 GM/dL (10.7-15.3); LYMPH % 27.9 % (8-40); MCH 31.1 pg (25.7-33.7); MCHC 34.4 g/dl (32.0-36.0); MEAN CELL VOLUME 90.4 fl (80-96); MEAN PLT VOLUME 7.2 fl (7.5-11.1); MONO % 6.2 % (3.8-10.2); NEUT % 65.5 % (42.8-82.8); PLATELET COUNT 164 10^3/uL (134-434); RBC 4.38 M/mm3 (3.60-5.2); RDW 14.2 % (11.6-15.6); WHITE BLOOD COUNT 6.3 K/mm3 (4.0-10.0)
[2021-11-24 19:45] LABS: CALCIUM 8.6 mg/dL (8.5-10.1)
[2021-11-24 19:46] LABS: ALBUMIN 2.6 g/dl (3.4-5.0); BLOOD UREA NITROGEN 26.6 mg/dL (7-18)
[2021-11-24 19:50] LABS: BILIRUBIN,TOTAL 0.3 mg/dL (0.2-1); TOT PROT 7.6 g/dl (6.4-8.2)
[2021-11-24] MEDS ORDERED: KETOROLAC TROMETHAMINE 30 MG/1 ML VIAL IM ONE (22:03)
[2021-11-24] MEDS ORDERED: ACETAMINOPHEN 1000 MG/100 ML BAG IVPB PRN (22:03)
[2021-11-24] MEDS ORDERED: KETOROLAC TROMETHAMINE 30 MG/1 ML VIAL ONE (22:41)
[2021-11-25] MEDS: GABAPENTIN 300 MG CAPSULE PO SCH ×4 (00:09→21:39)
[2021-11-25 01:50] VITALS: BMI 19.3
[2021-11-25] MEDS ORDERED: DIPHTH,PERTUSS(ACELL),TET VAC 0.5 ML VIAL IM ONE ×2 (03:12→10:00)
[2021-11-25 04:15] LABS: HIV INTERPRETATION PRESUMPTIVE POSITIVE (NEGATIVE)
[2021-11-25] MEDS ORDERED: VANCOMYCIN 1 GM in D5W (PRE-DOCKED) 1,000 MG/250 ML IVPB ONE (07:43)
[2021-11-25] MEDS ORDERED: methaDONE HCL 10 MG TABLET PO ONE (08:00)
[2021-11-25] MEDS ORDERED: PIPERACILLIN/TAZOBACTAM 3.375 GM VIAL IVPB ONE (09:02)
[2021-11-25] MEDS ORDERED: DEXTROSE 5%-WATER - 50 ML IVPB ONE (09:02)
[2021-11-25] MEDS: ENOXAPARIN NA (PORCINE) 40 MG/0.4 ML DISP.SYRIN SQ SCH (09:10)
[2021-11-25 09:24] LABS: BASO % 0.5 % (0-2.0); EOS % 0.2 % (0-4.5); HEMATOCRIT 38.3 % (32.4-45.2); HEMOGLOBIN 13.5 GM/dL (10.7-15.3); LYMPH % 23.7 % (8-40); MCH 31.6 pg (25.7-33.7); MCHC 35.2 g/dl (32.0-36.0); MEAN CELL VOLUME 89.7 fl (80-96); MEAN PLT VOLUME 7.4 fl (7.5-11.1); MONO % 9.1 % (3.8-10.2); NEUT % 66.5 % (42.8-82.8); PLATELET COUNT 174 10^3/uL (134-434); RBC 4.27 M/mm3 (3.60-5.2); RDW 14.1 % (11.6-15.6); WHITE BLOOD COUNT 4.5 K/mm3 (4.0-10.0)
[2021-11-25 09:35] LABS: ALBUMIN 2.3 g/dl (3.4-5.0); BLOOD UREA NITROGEN 30.1 mg/dL (7-18); CALCIUM 7.9 mg/dL (8.5-10.1)
[2021-11-25 09:38] LABS: CREATININE 1.1 mg/dL (0.55-1.3); PHOSPHOROUS 3.9 mg/dL (2.5-4.9)
[2021-11-25 09:40] LABS: BILIRUBIN,TOTAL 0.5 mg/dL (0.2-1); TOT PROT 7.4 g/dl (6.4-8.2)
[2021-11-25] MEDS ORDERED: VANCOMYCIN/WATER FOR INJ (PEG) 1,000 MG/200 ML BAG IVPB ONE (10:00)
[2021-11-25] MEDS ORDERED: PIPERACILLIN/TAZOB 3.375 GM 3.375 GM in DEXTROSE 5%-WATER - 50 ML IVPB ONE (10:00)
[2021-11-25] MEDS ORDERED: BICTEGRAV/EMTRICIT/TENOFOV (BIKTARVY) 50-200-25 MG TABLET PO SCH (10:00)
[2021-11-25] MEDS: THIAMINE HCL 100 MG TABLET (FP) PO SCH (12:07)
[2021-11-25] MEDS: MULTIVITAMINS (DAILY MVI) TABLET (FP) PO SCH (12:07)
[2021-11-25] MEDS ORDERED: PIPERACILLIN/TAZOB 3.375 GM 3.375 GM in DEXTROSE 5%-WATER - 50 ML IVPB SCH (18:00)
[2021-11-25] MEDS ORDERED: VANCOMYCIN 1,000 MG in DEXTROSE 5%-WATER - 250 ML IVPB SCH (18:30)
[2021-11-26] MEDS ORDERED: PIPERACILLIN/TAZOBACTAM 3.375 GM VIAL IVPB ONE ×4 (01:02→23:44)
[2021-11-26] MEDS ORDERED: DEXTROSE 5%-WATER - 50 ML IVPB ONE ×4 (01:02→23:45)
[2021-11-26] MEDS: PIPERACILLIN/TAZOB 3.375 GM 3.375 GM in DEXTROSE 5%-WATER - 50 ML IVPB SCH ×3 (01:44→17:13)
[2021-11-26] MEDS: VANCOMYCIN/WATER FOR INJ (PEG) 1,000 MG/200 ML BAG IVPB SCH ×2 (06:29→17:46)
[2021-11-26] MEDS: GABAPENTIN 300 MG CAPSULE PO SCH ×3 (06:29→21:23)
[2021-11-26 09:07] LABS: BASO % 0.5 % (0-2.0); EOS % 0.6 % (0-4.5); HEMATOCRIT 36.9 % (32.4-45.2); HEMOGLOBIN 12.4 GM/dL (10.7-15.3); LYMPH % 34.4 % (8-40); MCH 30.2 pg (25.7-33.7); MCHC 33.5 g/dl (32.0-36.0); MEAN CELL VOLUME 90.2 fl (80-96); MEAN PLT VOLUME 7.8 fl (7.5-11.1); MONO % 9.4 % (3.8-10.2); NEUT % 55.1 % (42.8-82.8); PLATELET COUNT 184 10^3/uL (134-434); RBC 4.09 M/mm3 (3.60-5.2); WHITE BLOOD COUNT 3.4 K/mm3 (4.0-10.0)
[2021-11-26] MEDS: THIAMINE HCL 100 MG TABLET (FP) PO SCH (09:14)
[2021-11-26] MEDS: MULTIVITAMINS (DAILY MVI) TABLET (FP) PO SCH (09:14)
[2021-11-26] MEDS: ENOXAPARIN NA (PORCINE) 40 MG/0.4 ML DISP.SYRIN SQ SCH (09:15)
[2021-11-26 12:25] LABS: CALCIUM 8.6 mg/dL (8.5-10.1)
[2021-11-26 12:26] LABS: ALBUMIN 2.5 g/dl (3.4-5.0); BLOOD UREA NITROGEN 28.6 mg/dL (7-18)
[2021-11-26 12:30] LABS: BILIRUBIN,TOTAL 0.3 mg/dL (0.2-1); TOT PROT 7.2 g/dl (6.4-8.2)
[2021-11-27] MEDS: PIPERACILLIN/TAZOB 3.375 GM 3.375 GM in DEXTROSE 5%-WATER - 50 ML IVPB SCH ×3 (01:44→17:41)
[2021-11-27] MEDS: GABAPENTIN 300 MG CAPSULE PO SCH ×3 (06:11→21:47)
[2021-11-27 09:27] LABS: CALCIUM 8.6 mg/dL (8.5-10.1); HEMATOCRIT 37.3 % (32.4-45.2); HEMOGLOBIN 12.5 GM/dL (10.7-15.3); MCH 30.2 pg (25.7-33.7); MCHC 33.4 g/dl (32.0-36.0); MEAN CELL VOLUME 90.5 fl (80-96); MEAN PLT VOLUME 7.9 fl (7.5-11.1); PLATELET COUNT 177 10^3/uL (134-434); RBC 4.12 M/mm3 (3.60-5.2); RDW 14.2 % (11.6-15.6); WHITE BLOOD COUNT 3.1 K/mm3 (4.0-10.0)
[2021-11-27 09:28] LABS: ALBUMIN 2.6 g/dl (3.4-5.0); BLOOD UREA NITROGEN 26.6 mg/dL (7-18)
[2021-11-27 09:33] LABS: BILIRUBIN,TOTAL 0.3 mg/dL (0.2-1); TOT PROT 7.3 g/dl (6.4-8.2)
[2021-11-27] MEDS: VANCOMYCIN/WATER FOR INJ (PEG) 1,000 MG/200 ML BAG IVPB SCH ×2 (09:56→18:07)
[2021-11-27] MEDS ORDERED: methaDONE HCL 10 MG TABLET PO ONE (10:00)
[2021-11-27] MEDS ORDERED: PIPERACILLIN/TAZOBACTAM 3.375 GM VIAL IVPB ONE ×2 (10:10→17:16)
[2021-11-27] MEDS ORDERED: DEXTROSE 5%-WATER - 50 ML IVPB ONE ×2 (10:10→17:16)
[2021-11-27] MEDS: ENOXAPARIN NA (PORCINE) 40 MG/0.4 ML DISP.SYRIN SQ SCH (10:12)
[2021-11-27] MEDS: THIAMINE HCL 100 MG TABLET (FP) PO SCH (10:13)
[2021-11-27] MEDS: MULTIVITAMINS (DAILY MVI) TABLET (FP) PO SCH (10:13)
[2021-11-27 10:45] LABS: ANISOCYTOSIS 0; MACROCYTOSIS 0
[2021-11-28] MEDS ORDERED: PIPERACILLIN/TAZOBACTAM 3.375 GM VIAL IVPB ONE ×3 (00:52→16:52)
[2021-11-28] MEDS ORDERED: DEXTROSE 5%-WATER - 50 ML IVPB ONE ×3 (00:53→16:52)
[2021-11-28] MEDS: PIPERACILLIN/TAZOB 3.375 GM 3.375 GM in DEXTROSE 5%-WATER - 50 ML IVPB SCH ×3 (01:17→17:43)
[2021-11-28] MEDS: VANCOMYCIN/WATER FOR INJ (PEG) 1,000 MG/200 ML BAG IVPB SCH ×2 (05:57→18:30)
[2021-11-28] MEDS: GABAPENTIN 300 MG CAPSULE PO SCH ×3 (05:58→22:37)
[2021-11-28] MEDS: ENOXAPARIN NA (PORCINE) 40 MG/0.4 ML DISP.SYRIN SQ SCH (09:58)
[2021-11-28] MEDS: MULTIVITAMINS (DAILY MVI) TABLET (FP) PO SCH (09:58)
[2021-11-28] MEDS: THIAMINE HCL 100 MG TABLET (FP) PO SCH (09:58)
[2021-11-28] MEDS: BICTEGRAV/EMTRICIT/TENOFOV (BIKTARVY) 50-200-25 MG TABLET PO SCH (17:02)
[2021-11-28] MEDS: SULFAMETHOXAZOLE/TRIMETHOPRIM 400MG/80MG S.S. TABLET PO SCH (17:02)
[2021-11-29] MEDS ORDERED: PIPERACILLIN/TAZOBACTAM 3.375 GM VIAL IVPB ONE ×2 (00:12→10:13)
[2021-11-29] MEDS ORDERED: DEXTROSE 5%-WATER - 50 ML IVPB ONE ×2 (00:13→10:13)
[2021-11-29] MEDS: PIPERACILLIN/TAZOB 3.375 GM 3.375 GM in DEXTROSE 5%-WATER - 50 ML IVPB SCH ×2 (01:38→12:27)
[2021-11-29] MEDS: VANCOMYCIN/WATER FOR INJ (PEG) 1,000 MG/200 ML BAG IVPB SCH (05:55)
[2021-11-29] MEDS: GABAPENTIN 300 MG CAPSULE PO SCH ×3 (05:55→21:21)
[2021-11-29] MEDS: THIAMINE HCL 100 MG TABLET (FP) PO SCH (10:26)
[2021-11-29] MEDS: ENOXAPARIN NA (PORCINE) 40 MG/0.4 ML DISP.SYRIN SQ SCH (10:26)
[2021-11-29] MEDS: MULTIVITAMINS (DAILY MVI) TABLET (FP) PO SCH (10:26)
[2021-11-29] MEDS: BICTEGRAV/EMTRICIT/TENOFOV (BIKTARVY) 50-200-25 MG TABLET PO SCH (10:31)
[2021-11-29] MEDS: SULFAMETHOXAZOLE/TRIMETHOPRIM 400MG/80MG S.S. TABLET PO SCH (11:22)
[2021-11-29] MEDS ORDERED: DALBAVANCIN HCL 1,500 MG in DEXTROSE 5%-WATER - 500 ML IVPB ONE (14:10)
[2021-11-30] MEDS: GABAPENTIN 300 MG CAPSULE PO SCH (06:24)
[2021-11-30 06:27] VITALS: BP 148/84; PULSE 69; TEMP 98.6
== END 2021-11-30 08:53 | disposition left against medical advice (07) | DRG 893 ==
LOC: JER 16:01 → JERBED 21:19 → J7W 11-25 02:57
PROVIDERS: ADMIT Hospitalist; ATTEND Internal Medicine
PROC: HZ2ZZZZ Detoxification Services for Substance Abuse Treatment (ICD-10-PCS; principal; 2021-11-24)
DX: M86.8X7 Other osteomyelitis, ankle and foot (principal); L97.529 Non-pressure chronic ulcer of other part of left foot with unspecified severity; B95.62 Methicillin resistant Staphylococcus aureus infection as the cause of diseases classified elsewhere; B95.2 Enterococcus as the cause of diseases classified elsewhere; B19.20 Unspecified viral hepatitis C without hepatic coma; F10.20 Alcohol dependence, uncomplicated; F14.20 Cocaine dependence, uncomplicated; F11.10 Opioid abuse, uncomplicated; I73.89 Other specified peripheral vascular diseases; L08.89 Other specified local infections of the skin and subcutaneous tissue; G62.9 Polyneuropathy, unspecified; L03.116 Cellulitis of left lower limb; R59.1 Generalized enlarged lymph nodes; R64 Cachexia; Z68.1 Body mass index [BMI] 19.9 or less, adult; F41.8 Other specified anxiety disorders; B20 Human immunodeficiency virus [HIV] disease; Z89.422 Acquired absence of other left toe(s)
CPT/HCPCS: 36415; 73610-TC-LT-FY; 73630-TC-LT; 73718-TC-LT; 76882-TC-RT-FY; 80053; 83735; 84100; 84443; 85025; 85651; 86140; 86359; 86360; 86705; 86708; 86803; 87040; 87070; 87076; 87186; 87205; 87340; 87389; 87517; 87522; 87536; 93005; 93010; 93925-TC; 99285-25; C9803-CS; J0875; U0003; U0005